=== PATIENT | male | born 1955 | race Caucasian/White ===

== ENCOUNTER 2017-01-30 10:50 | Emergency (ER) | payer OTHER ==
[2017-01-30 11:01] VITALS: BP 114/81; PULSE 74; TEMP 98; BMI 27.1
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
--- NOTE | 2017-01-31 18:24 | EKG ---
Test Reason : Blood Pressure : / mmHG Vent. Rate : 070 BPM Atrial Rate : 070 BPM P-R Int : 172 ms QRS Dur : 110 ms QT Int : 390 ms P-R-T Axes : 046 008 -35 degrees QTc Int : 421 ms NORMAL SINUS RHYTHM LOW VOLTAGE QRS CANNOT RULE OUT ANTEROSEPTAL INFARCT (CITED ON OR BEFORE 07-MAY-2011) T WAVE ABNORMALITY, CONSIDER LATERAL ISCHEMIA NON-SPECIFIC INTRA-VENTRICULAR CONDUCTION BLOCK WHEN COMPARED WITH ECG OF 09-MAY-2011 10:50, Lateral TW changes better QT shorter Confirmed by MD FRANK, CHELSIE ([id number]) on 01/31/2017 6:24:00 PM Referred By: CAM JENNINGS Confirmed By:CHELSIE MARIE MD
== END 2017-01-30 12:19 | disposition home or self-care (01) ==
LOC: FER 10:50
DX: R05 Cough (principal); I25.2 Old myocardial infarction; I25.10 Atherosclerotic heart disease of native coronary artery without angina pectoris; Z95.5 Presence of coronary angioplasty implant and graft; Z95.810 Presence of automatic (implantable) cardiac defibrillator
CPT/HCPCS: 71020-TC; 93005; 99283-25

== ENCOUNTER 2019-06-25 12:22 | Emergency (ER) | payer OTHER ==
[2019-06-25 12:28] VITALS: TEMP 99.2; BMI 27.4
--- NOTE | 2019-06-25 12:33 | PDOC ---
History of Present Illness - General Chief Complaint: Syncope/Near Syncope Stated Complaint: I PASSED OUT Time Seen by Provider: 06/25/19 12:30 - History of Present Illness Initial Comments: 06/25/19 13:13 Chief complaint: Loss of consciousness, head injury HPI: Patient was sitting at a sidewalk caf this morning, suddenly lost consciousness, falling from his chair, and striking his head on the sidewalk. There were no prodromal symptoms, and the first thing he remembers is being helped out from the sidewalk by another person. He regained alertness quickly, was not confused afterwards, and there was no loss of bowel or bladder control. He has an injury to his head, which is wrapped in a bandage, and he is unaware of the extent of injury underneath the wrapping. Review of systems: As noted above, the patient denies any prodromal symptoms or subsequent lightheadedness, dizziness, chest pain, shortness of breath, abdominal pain, nausea, vomiting, diarrhea, visual or focal neurologic symptoms , unsteadiness of gait. He has had a cough for several days, with prolonged severe coughing spells, nonproductive, with no fever, chest pain, or shortness of breath. Remainder of systems reviewed and negative Past medical history: [place] with complete occlusion of the LAD, multiple stents in 2010, his client support professional at the time recommended a prophylactic internal defibrillator, but this was refused. While playing softball in 2015, sudden loss of consciousness with cardiac arrest. Revived, and an implantable defibrillator was installed at that time. His defibrillator has never fired to his knowledge. However he had one syncopal episode in 2017, also related to vigorous coughing, and was evaluated for this by his client support professional. The defibrillator was found not to have fired, and no definite etiology for his syncopal episode was determined. Again this episode today seem to be precipitated by a vigorous coughing episode. High blood pressure. Elevated cholesterol. Controlled bipolar illness. Medications were reviewed and include baby aspirin, atorvastatin, Coreg, Entresto, Eplerium, Lasix, Zoloft, lithium, aripiprazole. Social history: Patient is active, exercises regularly, skates, bikes, and skis. Denies tobacco alcohol or drugs Family history: Reviewed and noncontributory including early coronary artery disease, other cardiac diseases including atrial fibrillation and other arrhythmias, lung disease, GI disease, diabetes or other metabolic diseases, or cancer Physical exam: Alert and oriented, well-developed well-nourished, no acute distress, cheerful and cooperative. He is asymptomatic at present except for his cough. Afebrile, vital signs normal Head: There is a flat contusion and ecchymosis approximately 2 cm in diameter, right frontal scalp. No laceration is present. There is no hematoma, swelling , induration, crepitus, or bony defect. PERRLA 4 mm, fundi benign with sharp disc margins and good central venous pulsations, no hemorrhages or exudates. EOMs full without diplopia. Visual campbell intact to confrontation. Conjunctivae clear. ENT clear Neck without point tenderness or deformity, full range of motion without pain. No bruits masses or nodes Lungs clear to PNA, full breath sounds bilaterally, no wheezes rales or rhonchi. No chest wall or rib cage tenderness or deformity other than defibrillator device implanted in the left upper chest. CV S1-S2 normal without murmur rub or gallop pulses full and symmetric no JVD or edema no bruits regular rate. Abdomen soft nontender without mass organomegaly No pelvic or spine deformity or point tenderness Neurological C2 to 12 intact. Strength full and symmetric. No focal sensorimotor deficits. Gait stable and unimpaired Extremities no CCE Skin clear, no rash, adequate turgor and wet mucous membranes Extremities: Multiple superficial abrasions of both palms. No swelling or deformities. No other evidence of trauma of the arms or legs. Hips and shoulders full range of motion without tenderness or deformity Impression: Probable recurrent vasovagal syncope, precipitated by cough. It is unlikely that the patient's defibrillator fired, since he felt no unusual sensations in his chest. He is clinically and hemodynamically stable now. Will out occult coronary event. Plan: EKG cardiac enzymes chest x-ray further observation, monitoring, and evaluation. Contact client support professional for more information. Past History - Past Medical History Allergies/Adverse Reactions: Allergies Allergy/AdvReac Type Severity Reaction Status Date / Time No Known Allergies Allergy Verified 06/25/19 12:23 Home Medications: Ambulatory Orders Aspirin [Aspirin EC] 81 mg PO DAILY 01/30/17 Atorvastatin Ca [Lipitor] 40 mg PO HS 01/30/17 Guaifenesin AC [Robitussin-AC] 2 tsp PO Q4HWA PRN #120 ml MDD 6 06/25/19 Cardiac Disorders: Yes (CAD, CARDIAC ARREST 02/2016) COPD: No Other medical history: [place] X 2, CARDIAC ARREST - Surgical History Cardiac Surgery: Yes (CARDIAC STENTS, DEFIBRILLATOR) - Psycho Social/Smoking Cessation Hx Smoking History: Never smoked Hx Alcohol Use: No Drug/Substance Use Hx: No *Physical Exam - Vital Signs Last Vital Signs Temp Pulse Resp BP Pulse Ox 99.2 F 72 16 117/72 98 06/25/19 12:23 06/25/19 14:44 06/25/19 14:44 06/25/19 14:44 06/25/19 14:44 ED Treatment Course - LABORATORY CBC & Chemistry Diagram: 06/25/19 12:37 06/25/19 12:37 - ADDITIONAL ORDERS Additional order review: Laboratory Results 06/25/19 06/25/19 06/25/19 12:37 12:37 12:37 PT with INR 14.4 H INR 1.29 H Sodium 135 L Potassium 4.1 Chloride 100 Carbon Dioxide 27 Anion Gap 8 BUN 16.0 Creatinine 1.1 Est GFR (CKD-EPI)AfAm 81.79 Est GFR (CKD-EPI)NonAf 70.57 Random Glucose 113 H Calcium 8.5 Magnesium 2.0 Total Bilirubin 1.1 H AST 24 ALT 22 Alkaline Phosphatase 73 Creatine Kinase 189 Creatine Kinase Index 1.0 CK-MB (CK-2) 2.0 Troponin I < 0.03 Total Protein 6.6 Albumin 3.6 06/25/19 12:37 RBC 4.60 MCV 90.0 MCHC 34.6 RDW 12.0 MPV 8.0 Neutrophils % 71.7 Lymphocytes % 14.3 Monocytes % 11.6 H Eosinophils % 2.2 Basophils % 0.2 - RADIOLOGY Radiology Studies Ordered: Category Date Time Status HEAD CT WITHOUT CONTRAST [CT] Stat CT Scan 06/25/19 12:54 Completed CHEST X-RAY PORTABLE* [RAD] Stat Radiology 06/25/19 12:34 Completed - Medications Given in the ED: ED Medications Discontinued Medications Generic Name Dose Route Start Last Admin Trade Name Freq PRN Reason Stop Dose Admin Diphtheria/Tetanus/Acell Pertussis 0.5 ml 06/25/19 14:56 06/25/19 15:07 Boostrix - IM 06/25/19 14:57 0.5 ml ONCE ONE Administration Guaifenesin/Codeine Phosphate 10 ml 06/25/19 12:53 06/25/19 13:09 Robitussin Ac - PO 06/25/19 12:54 10 ml ONCE ONE Administration Medical Decision Making - Medical Decision Making 06/25/19 16:06 EKG was reviewed and shows diffuse anterolateral disease with Q waves in leads V1 through V4, inverted T's in V6, and nonspecific ST-T wave changes in 1 and half. EKG, however, is unchanged from prior and likely the result of prior [place] 2010 and longstanding heart disease. Chest x-ray is clear Head CT is negative for acute bleed Labs are without significant abnormalities except for mildly elevated white count. This could be the result of viral URI/bronchitis or the stress of the injury. Cardiac enzymes negative. Cough suppressant was administered and will be continued in attempt to avoid further coughing spells, that might trigger syncopal episodes. Patient's client support professional, Dr. Bethany Thomas, at [facility] was contacted by phone. The case was discussed with her. She recalled the prior syncopal episode which was also precipitated by coughing. Further studies obtained at that time were normal. The patient has been stable and his current medication list was obtained from her. She will follow the patient closely. The patient was advised to call her office tomorrow for a follow-up appointment in the next few days, or return to ER if symptoms persist. He was told that we would like to have his device interrogated before he leaves, but he refused. He agrees to have his defibrillator interrogated as soon as he returns home, using his home interrogation device as he usually does, and will call and inform us of the result. He is fully ambulatory, in no pain or other distress, cardiovascularly and neurologically intact upon discharge to follow-up as directed or return to the ER if there are further symptoms Discharge - Discharge Information Problems reviewed: Yes Clinical Impression/Diagnosis: Syncope Qualifiers: Syncope type: vasovagal syncope Qualified Code(s): R55 - Syncope and collapse Head injury Qualifiers: Encounter type: initial encounter Qualified Code(s): S09.90XA - Unspecified injury of head, initial encounter Condition: Improved Disposition: HOME - Admission No - Additional Discharge Information Prescriptions: Guaifenesin AC [Robitussin-AC] 2 tsp PO Q4HWA PRN #120 ml MDD 6 PRN Reason: Cough - Follow up/Referral - Patient Discharge Instructions Patient Printed Discharge Instructions: DI for Syncope in Adults (Fainting), DI for Closed Head Injury Additional Instructions: Call [employer] immediately upon arrival home and have your defibrillator interrogated. If there is a problem, contact Dr. Thomas, your client support professional, immediately. Use cough suppressant to avoid further coughing spells. Follow- up with your client support professional or return to ER if further symptoms. - Post Discharge Activity
[2019-06-25] MEDS ORDERED: guaiFENesin/CODEINE 10 ML UNIT-DOSE CUPS PO ONE (12:53)
[2019-06-25 12:55] LABS: BASO % 0.2 % (0-2.0); EOS % 2.2 % (0-4.5); HEMATOCRIT 41.4 % (35.4-49); HEMOGLOBIN 14.3 GM/dl (11.7-16.9); LYMPH % 14.3 % (8-40); MCH 31.1 pg (25.7-33.7); MCHC 34.6 g/dl (32.0-35.9); MONO % 11.6 % (3.8-10.2); NEUT % 71.7 % (42.8-82.8); PLATELET COUNT 281 K/MM3 (134-434); WHITE BLOOD COUNT 14.4 K/mm3 (4.0-10.8)
[2019-06-25 13:00] LABS: INR 1.29 (0.82-1.09); PROTHROMBIN TIME (PATIENT) 14.4 SEC (10.2-13.0)
[2019-06-25 13:03] LABS: ALBUMIN 3.6 g/dl (3.4-5.0); BILIRUBIN,TOTAL 1.1 mg/dl (0.2-1); CALCIUM 8.5 mg/dl (8.5-10); CREATININE 1.1 mg/dl (0.55-1.3); POTASSIUM 4.1 mmol/L (3.5-5.1); TOT PROT 6.6 g/dl (6.4-8.2)
[2019-06-25] MEDS ORDERED: guaiFENesin/D-METHORPHAN HB 10 ML UNIT-DOSE CUPS ONE (13:06)
[2019-06-25] MEDS ORDERED: guaiFENesin/CODEINE 10 ML UNIT-DOSE CUPS ONE (13:07)
[2019-06-25 14:45] VITALS: BP 117/72; PULSE 72
[2019-06-25] MEDS ORDERED: DIPHTH,PERTUSS(ACELL),TET 0.5 ML DISP.SYRIN IM ONE ×2 (14:56→15:04)
--- NOTE | 2019-06-27 13:13 | EKG ---
Test Reason : Blood Pressure : / mmHG Vent. Rate : 070 BPM Atrial Rate : 070 BPM P-R Int : 170 ms QRS Dur : 090 ms QT Int : 418 ms P-R-T Axes : 035 002 145 degrees QTc Int : 451 ms POOR DATA QUALITY, INTERPRETATION MAY BE ADVERSELY AFFECTED NORMAL SINUS RHYTHM CANNOT RULE OUT ANTEROSEPTAL INFARCT , AGE UNDETERMINED ABNORMAL ECG Confirmed by LIN MORSE MD ([id number]) on 06/27/2019 1:12:45 PM Referred By: JACKLYN BONNER Confirmed By:LIN MORSE MD
== END 2019-06-25 15:42 | disposition home or self-care (01) ==
LOC: FER 12:22
PROC: 3E0234Z Introduction of Serum, Toxoid and Vaccine into Muscle, Percutaneous Approach (ICD-10-PCS; principal; 2019-06-25)
DX: R55 Syncope and collapse (principal); S09.90XA Unspecified injury of head, initial encounter; W18.39XA Other fall on same level, initial encounter; Y93.89 Activity, other specified; Y92.89 Other specified places as the place of occurrence of the external cause; I25.10 Atherosclerotic heart disease of native coronary artery without angina pectoris; I25.2 Old myocardial infarction; Z95.5 Presence of coronary angioplasty implant and graft; Z95.810 Presence of automatic (implantable) cardiac defibrillator
CPT/HCPCS: 36415; 70450-TC; 71045-TC-FY; 80053; 82550; 82553; 83735; 84484; 85025; 85610; 90715; 93005; 99285-25

== ENCOUNTER 2021-03-16 07:58 | Day surgery (SDC) | payer OTHER ==
[2021-03-14 18:26] VITALS: BMI 27.4
[2021-03-16 08:15] VITALS: TEMP 97.8
[2021-03-16] MEDS ORDERED: LIDOCAINE HCL/PF 2% SDV 5ML VIAL ONE (08:25)
[2021-03-16] MEDS ORDERED: PROPOFOL 20 ML ONE ×4 (08:25)
[2021-03-16] MEDS ORDERED: ETOMIDATE 20 MG/10 ML AMPUL IVPUSH ONE (08:42)
[2021-03-16 09:46] VITALS: BP 100/70; PULSE 69
== END 2021-03-16 09:50 | disposition home or self-care (01) ==
LOC: FASU-ENDO 07:58
PROVIDERS: ATTEND Internal Medicine Gastroenterology
PROC: 0DJD8ZZ Inspection of Lower Intestinal Tract, Via Natural or Artificial Opening Endoscopic (ICD-10-PCS; principal; 2021-03-16 09:01)
DX: Z12.11 Encounter for screening for malignant neoplasm of colon (principal)